=== PATIENT | male | born 1960 | race Caucasian/White ===

== ENCOUNTER 2020-12-11 14:35 | Emergency (ER) | payer OTHER ==
[~2020-12-11] VITALS: Ht 177.8 cm; Wt 38.6 kg
[~2020-12-11 14:35] MED LIST: DOCUSATE100 MG; IMITREX100 MG PO; LEXAPRO10 MG PO; Lopressor25 MG PO; OXYCODONE/APAP1 TA2; OXYCODONE/APAP1 TA2 PO; SIMVASTATIN40 MG PO
== END 2020-12-11 19:51 | disposition home or self-care (01) ==
LOC: ED 14:35
DX: S61.213A Laceration without foreign body of left middle finger without damage to nail, initial encounter (principal); Z79.899 Other long term (current) drug therapy; X58.XXXA Exposure to other specified factors, initial encounter; Y93.89 Activity, other specified; Y92.89 Other specified places as the place of occurrence of the external cause; Y99.8 Other external cause status